=== PATIENT | male | born 1950 | race Caucasian/White ===

== ENCOUNTER 2022-06-19 06:40 | Observation (INO) ==
[~2022-06-19 06:40] MED LIST: Buffered Lidocaine 1% SYRIN 1 ml INTRADERM ONE; Lactated Ringers 1000 ml BAG 1,000 ML IV SCH
[2022-06-19] MEDS ORDERED: fentaNYL 100 mcg/2 ml 50 MCG/ML VIAL ONE (06:59)
[2022-06-19] MEDS ORDERED: Midazolam 2 mg/2 ml VIAL 1 mg/ml 2 ml VIAL (2 mg) ONE ×2 (06:59→09:30)
[2022-06-19] MEDS ORDERED: Acetaminophen IV 1 GM/100ML 1,000 MG/100 ML BAG IV ONE (07:01)
[2022-06-19] MEDS ORDERED: Dexamethasone IV 4 MG/ML VIAL 1 ml VIAL ONE (07:01)
[2022-06-19] MEDS ORDERED: Lidocaine 2% PF 5 ML VIAL ONE (07:01)
[2022-06-19] MEDS ORDERED: Ondansetron 4 mg VIAL 2 MG/ML 2 ml VIAL ONE (07:01)
[2022-06-19] MEDS ORDERED: ceFAZolin 2 GM in NS PREMIX 2 GM/100 ML BAG IVPB ONE (07:35)
[2022-06-19] MEDS ORDERED: ROPIVACAINE 5 MG/ML 30 ML BTL (0.5%) ONE (08:06)
[2022-06-19] MEDS ORDERED: Lidocaine 1% MPF 5 ML VIAL ONE (08:06)
[2022-06-19] MEDS ORDERED: Naloxone 0.4 mg VIAL 0.4 mg/ml 1 ml VIAL IV PRN (09:46)
[2022-06-19] MEDS ORDERED: HYDROmorphone 1 MG/1 ML SYRINGE IV PRN (09:46)
[2022-06-19] MEDS ORDERED: Morphine 2 MG/ML SYRINGE IV PRN (11:46)
[2022-06-19] MEDS ORDERED: Ondansetron 4 mg VIAL 2 MG/ML 2 ml VIAL IV PRN (11:46)
[2022-06-19] MEDS ORDERED: Ondansetron ODT 4 mg TAB 4 MG TAB PO PRN (11:46)
[2022-06-19] MEDS ORDERED: Magnesium Hydroxide LIQ 30 ML UDC PO PRN (11:46)
[2022-06-19] MEDS ORDERED: Lactulose 30 ml UDC PO PRN (11:46)
[2022-06-19] MEDS ORDERED: ceFAZolin 1 GM ADVAN 1 GM in NS 0.9% 50 ML 50 ML IVPB SCH (12:00)
[2022-06-19] MEDS: Lactated Ringers 1000 ml BAG 1,000 ML IV SCH (15:17)
[2022-06-19] MEDS: ceFAZolin 1 GM ADVAN 1 GM in NS 0.9% 50 ML 50 ML IVPB SCH (18:35)
[2022-06-19] MEDS: Magnesium Hydroxide LIQ 30 ML UDC PO SCH (22:33)
[2022-06-20] MEDS: Lactated Ringers 1000 ml BAG 1,000 ML IV SCH (01:33)
[2022-06-20] MEDS: ceFAZolin 1 GM ADVAN 1 GM in NS 0.9% 50 ML 50 ML IVPB SCH ×2 (03:23→10:31)
[2022-06-20 06:38] LABS: Hematocrit 30 % (42-52); Hemoglobin 10.3 g/dL (14.0-18.0); Mean Platelet Volume 8.4 fL (7.4-10.4); Platelet Count 225 10^3/uL (150-450)
[2022-06-20 07:08] LABS: Calcium 8.5 mg/dL (8.6-10.3); Potassium 4.8 mmol/L (3.5-5.0); eGFR CKD-EPI 66.2 (>60)
[2022-06-20] MEDS: Magnesium Hydroxide LIQ 30 ML UDC PO SCH (08:10)
[2022-06-20] MEDS ORDERED: Vitamin THERAPEUTIC TAB PO SCH (09:00)
[2022-06-20 12:19] VITALS: BP 119/71
== END 2022-06-20 13:10 | disposition home or self-care (01) ==
LOC: INTOOBSV 06:40 → AA 06:40 → SSU 11:46
PROVIDERS: ADMIT Orthopaedic Surgery Adult Reconstructive Orthopaedic Surgery; ATTEND Orthopaedic Surgery Adult Reconstructive Orthopaedic Surgery